=== PATIENT | male | born 1960 | race Caucasian/White ===

== ENCOUNTER 2023-06-14 10:28 | Emergency (ER) | payer SELFPAY ==
[~2023-06-14] VITALS: Ht 182.9 cm; Wt 75.8 kg
[2023-06-14 11:51] LABS: MEAN CORPUSCULAR HEMOGLOBIN 36.3 pg (27.0-33.0); MEAN CORPUSCULAR HGB CONC 30.8 g/dl (32.0-36.5); RED BLOOD COUNT 1.35 10^6/uL (4.30-6.10)
[2023-06-14 11:54] LABS: HEMATOCRIT 15.9 % (42.0-52.0); MEAN CORPUSCULAR VOLUME 117.8 fl (80.0-96.0)
[2023-06-14 11:56] LABS: HEMOGLOBIN 4.9 g/dl (13.5-17.5)
[2023-06-14 11:57] LABS: PLATELET COUNT, AUTOMATED 36 10^3/uL (150-450)
[2023-06-14 12:07] LABS: INR 1.07; PARTIAL THROMBOPLASTIN TIME 24.5 SECONDS (24.8-34.2); PROTHROMBIN TIME 13.6 SECONDS (12.5-14.5)
[2023-06-14 12:12] LABS: CK-MB VALUE MASS < 1.0 NG/ML (<3.6); LIPASE 28 U/L (12-53)
[2023-06-14 12:14] LABS: ALBUMIN 3.5 G/DL (3.2-5.2); ALKALINE PHOSPHATASE 111 U/L (46-116); ALT/SGPT < 9 U/L (7.0-40); AST/SGOT 11 U/L (<34); BILIRUBIN,DIRECT 0.2 MG/DL (<0.4); BILIRUBIN,TOTAL 0.6 MG/DL (0.3-1.2); BLOOD UREA NITROGEN 26 MG/DL (9-23); CALCIUM LEVEL 9.1 MG/DL (8.3-10.6); CARBON DIOXIDE LEVEL 24 MMOL/L (20-31); CHLORIDE LEVEL 107 MMOL/L (98-107); CPK CREATINE PHOSPHOKINASE 62 U/L (46-171); GLOMERULAR FILTRATION RATE 38.3 (>49); GLUCOSE, FASTING 119 MG/DL (74-106); MB/CK RELATIVE INDEX 1.61 (< OR =4); POTASSIUM SERUM 4.3 MMOL/L (3.5-5.1); SODIUM LEVEL 138 MMOL/L (136-145); TOTAL PROTEIN 6.1 G/DL (5.7-8.2)
[2023-06-14 12:15] VITALS: TEMP 98.2
[2023-06-14 12:16] LABS: FREE T4 1.03 NG/DL (0.89-1.76); THYROID STIMULATING HORMONE 2.826 uIU/ML (0.55-4.78)
[2023-06-14 12:43] LABS: RSV AMPLIFICATION NEGATIVE (NEGATIVE)
[2023-06-14 12:50] LABS: ATYPICAL LYMPH 22 % (0-5); BASOPHILS 1 % (0-1); LYMPHOCYTES 64 % (16-44); MONOCYTES 2 % (0-5); NEUTROPHILS 11 % (28-66)
[2023-06-14 12:51] LABS: ANISOCYTOSIS 3+; HYPOCHROMASIA 2+
[2023-06-14] MEDS: NS 1,000 ML IV ONE (12:51)
[2023-06-14 12:53] LABS: PLATELET ESTIMATE MARKED DECREASE (NORMAL); STOMATOCYTES 1+
[2023-06-14] MEDS ORDERED: HOME MED LIST COMPLETE! XX SCH (13:00)
[2023-06-14] MEDS ORDERED: ISOVUE-370 76% 100ML VIAL As Ordered ONE (13:05)
[2023-06-14 13:06] LABS: CK-MB VALUE MASS < 1.0 NG/ML (<3.6)
[2023-06-14 13:07] LABS: CPK CREATINE PHOSPHOKINASE 54 U/L (46-171); MB/CK RELATIVE INDEX 1.85 (< OR =4)
[2023-06-14 15:31] VITALS: BP 115/61; O2SAT 94
== END 2023-06-14 16:34 | disposition left against medical advice (07) ==
LOC: M ED 10:28
DX: C85.90 Non-Hodgkin lymphoma, unspecified, unspecified site (principal); F17.210 Nicotine dependence, cigarettes, uncomplicated; Z88.0 Allergy status to penicillin; Z79.1 Long term (current) use of non-steroidal anti-inflammatories (NSAID); Z53.9 Procedure and treatment not carried out, unspecified reason
CPT/HCPCS: 70450; 71045; 71275; 74177; 80047; 80048; 80076; 82550; 82553; 83690; 83880; 84439; 84443; 84484; 85025; 85049; 85055; 85610; 85730; 86850; 86900; 86901; 87040; 87631; 93005; 93041; 94760; 96360; 96361; 99285; Q9967

== ENCOUNTER 2023-06-15 10:52 | Observation (INO) | payer SELFPAY ==
[2023-06-15] VITALS (9 sets, daily range): BP systolic 120–141; BP diastolic 59–82; TEMP 97.1–98.3; O2SAT 98–100
[~2023-06-15] VITALS: Ht 182.9 cm; Wt 79.1 kg
[2023-06-15 12:11] LABS: BASO # 0.2 10^3/uL (0.0-0.2); BASO % 0.3 % (0.0-1.0); EOS # 0.2 10^3/uL (0.0-0.5); EOS % 0.3 % (0.0-3.0); LYMPH # 60.8 10^3/uL (1.5-5.0); LYMPH % 90.5 % (24.0-44.0); MEAN CORPUSCULAR HEMOGLOBIN 36.5 pg (27.0-33.0); MEAN CORPUSCULAR HGB CONC 31.1 g/dl (32.0-36.5); NEUTROPHILS # 3.4 10^3/uL (1.5-8.5); RED BLOOD COUNT 1.26 10^6/uL (4.30-6.10)
[2023-06-15 12:14] LABS: HEMOGLOBIN 4.6 g/dl (13.5-17.5); MEAN CORPUSCULAR VOLUME 117.5 fl (80.0-96.0); PLATELET COUNT, AUTOMATED 37 10^3/uL (150-450); WHITE BLOOD COUNT 67.1 10^3/uL (4.0-10.0)
[2023-06-15 12:15] LABS: HEMATOCRIT 14.8 % (42.0-52.0)
[2023-06-15 12:37] LABS: CALCIUM LEVEL 8.7 MG/DL (8.3-10.6); CREATININE FOR GFR 1.84 MG/DL (0.70-1.30); GLOMERULAR FILTRATION RATE 39.8 (>49); POTASSIUM SERUM 4.5 MMOL/L (3.5-5.1)
[2023-06-15] MEDS ORDERED: HOME MED LIST COMPLETE! XX SCH (14:10)
[2023-06-15] MEDS: FUROSEMIDE 40MG/4ML VIAL IV ONE (17:46)
[2023-06-15 19:09] LABS: HEMATOCRIT 21.9 % (42.0-52.0); MEAN CORPUSCULAR VOLUME 103.3 fl (80.0-96.0); RED BLOOD COUNT 2.12 10^6/uL (4.30-6.10)
[2023-06-15 19:10] LABS: PLATELET COUNT, AUTOMATED 32 10^3/uL (150-450); WHITE BLOOD COUNT 66.5 10^3/uL (4.0-10.0)
[2023-06-16] MEDS ORDERED: ADVICAP PO (11:32)
== END 2023-06-15 20:10 | disposition left against medical advice (07) ==
LOC: M ED 10:52 → M ED INP 13:49 → M MSPAV 17:38
PROVIDERS: ADMIT Internal Medicine Nephrology; ATTEND Internal Medicine Nephrology
DX: C91.90 Lymphoid leukemia, unspecified not having achieved remission (principal); D63.0 Anemia in neoplastic disease; D69.6 Thrombocytopenia, unspecified; D72.829 Elevated white blood cell count, unspecified; N17.9 Acute kidney failure, unspecified; N18.9 Chronic kidney disease, unspecified; Z85.528 Personal history of other malignant neoplasm of kidney; Z90.5 Acquired absence of kidney; H91.90 Unspecified hearing loss, unspecified ear; F10.21 Alcohol dependence, in remission; R59.0 Localized enlarged lymph nodes; R63.4 Abnormal weight loss; R53.1 Weakness; R26.2 Difficulty in walking, not elsewhere classified
CPT/HCPCS: 36415; 36430; 80048; 85025; 85027; 85049; 85055; 86850; 86900; 86901; 86920; 96374; 99285; J1940; P9016

== ENCOUNTER 2023-06-16 11:20 | Emergency (ER) | payer SELFPAY ==
[~2023-06-16] VITALS: Ht 182.9 cm; Wt 77.6 kg
[2023-06-16] MEDS ORDERED: ADVICAP PO (11:32)
[2023-06-16 12:35] LABS: BASO # 0.4 10^3/uL (0.0-0.2); BASO % 0.6 % (0.0-1.0); EOS # 0.2 10^3/uL (0.0-0.5); EOS % 0.3 % (0.0-3.0); HEMATOCRIT 23.3 % (42.0-52.0); HEMOGLOBIN 7.6 g/dl (13.5-17.5); LYMPH # 56.7 10^3/uL (1.5-5.0); LYMPH % 89.7 % (24.0-44.0); MEAN CORPUSCULAR HEMOGLOBIN 33.5 pg (27.0-33.0); MEAN CORPUSCULAR HGB CONC 32.6 g/dl (32.0-36.5); MEAN CORPUSCULAR VOLUME 102.6 fl (80.0-96.0); MONO % 3.1 % (2.0-8.0); NEUTROPHILS # 3.5 10^3/uL (1.5-8.5); NEUTROPHILS % 5.5 % (36.0-66.0); RED BLOOD COUNT 2.27 10^6/uL (4.30-6.10)
[2023-06-16] MEDS ORDERED: HOME MED LIST COMPLETE! XX SCH (12:40)
[2023-06-16 12:46] LABS: PLATELET COUNT, AUTOMATED 33 10^3/uL (150-450); WHITE BLOOD COUNT 63.2 10^3/uL (4.0-10.0)
[2023-06-16 12:58] LABS: ALBUMIN 4.1 G/DL (3.2-5.2); BILIRUBIN,DIRECT 0.4 MG/DL (<0.4); BILIRUBIN,TOTAL 1.1 MG/DL (0.3-1.2); CREATININE FOR GFR 2.08 MG/DL (0.70-1.30); GLOMERULAR FILTRATION RATE 34.5 (>49); TOTAL PROTEIN 6.7 G/DL (5.7-8.2)
[2023-06-16 13:50] VITALS: BP 147/72; TEMP 97.8; O2SAT 98
== END 2023-06-16 13:51 | disposition home or self-care (01) ==
LOC: M ED 11:20
DX: D64.9 Anemia, unspecified (principal); N18.9 Chronic kidney disease, unspecified; F17.210 Nicotine dependence, cigarettes, uncomplicated; F10.10 Alcohol abuse, uncomplicated; Z88.0 Allergy status to penicillin; Z79.1 Long term (current) use of non-steroidal anti-inflammatories (NSAID)